=== PATIENT | male | born 1975 | race Caucasian/White ===

== ENCOUNTER 2020-08-29 18:05 | Emergency (ER) | payer SELFPAY ==
[2020-08-29 18:11] VITALS: BP 155/99; PULSE 87; RESP 16; TEMP 36.8; O2SAT 94; BMI 46.1
[2020-08-29 18:26] LABS: Glucose Point of Care 450 mg/dL (70-110)
--- NOTE | 2020-08-29 18:30 | W.ED.RECABL ---
HPI - Recheck/Abnormal Lab/Rx General: Chief Complaint: Recheck/Abnormal Lab/Rx Stated Complaint: doc sent/thinks hes going into diabetic coma Time Seen by Provider: 08/29/20 18:23 Source: patient Mode of arrival: ambulatory Limitations: no limitations History of Present Illness: HPI narrative: 45-year-old male who states he has diabetes and his blood sugar has been running in the 400s over the last week. Patient's PCP had him do,. Make sure he was not DKA. He has had a diabetes for long time is only on Metformin at home. He denies any worsening improving factors. Denies any vomiting or diarrhea. Denies any pain anywhere. Review of Systems Const: Denies: fever(s), chills, body aches or change in appetite Eyes: Denies: blurry vision or eye discomfort ENMT: Denies: throat pain or dental pain Card: Denies: chest pain Resp: Denies: dyspnea GI: Denies: abdominal pain, nausea, vomiting or diarrhea : Denies: dysuria Musc: Denies: neck pain or back pain Skin/Breast: Denies: rash Neuro: Denies: headache(s) Psych: Denies: depression Pete/Lymph: Denies: easy bruising All/Imm: Denies: urticaria Physical Exam Const: COMMON NORMALS: no acute distress, patient oriented x3 and healthy appearing HENMT: COMMON NORMALS: normocephalic and atraumatic HEAD & SCALP: normocephalic and atraumatic Eye: COMMON NORMALS: Equal, round and reactive pupils present and EOMs intact bilaterally PUPIL: Yes Equal, round and reactive pupils present Neck/C-Spine: COMMON NORMALS: full ROM and supple Chest: COMMONS NORMALS: normal inspection of the chest and normal palpation of entire chest wall Resp: COMMON NORMALS: normal respiratory effort, No retractions, No use of accessory muscles and clear to auscultation bilaterally AUSCULTATION: clear to auscultation bilaterally Cardio: COMMON NORMALS: regular rate, regular rhythm and No murmurs present (Cardio) RATE: regular rate RHYTHM: regular rhythm GI: COMMON NORMALS: Normal to inspection, nondistended, normoactive bowel sounds present, Soft to palpation, non-tender and no masses PALPATION: Yes Soft to palpation Extremity: COMMON NORMALS: normal to inspection and full ROM Neuro: COMMON NORMALS: patient oriented x3, moves all extremities and no focal motor deficits Psych: COMMON NORMALS: mental status grossly normal, Normal thought process present and cooperative THOUGHT PROCESS: Normal thought process present Skin: COMMON NORMALS: no rashes or lesions noted and no wounds GENERAL SKIN EXAM: no rashes or lesions noted Course Vital Signs: Vital signs: Vital Signs Temperature 98.2 F 08/29/20 18:11 Pulse Rate 89 08/29/20 19:24 Respiratory Rate 18 08/29/20 19:24 Blood Pressure 147/95 08/29/20 19:24 Pulse Oximetry 96 08/29/20 19:24 MDM - Recheck/Abnormal Lab/Rx MDM Narrative: Medical decision making narrative: Patient presents with hyperglycemia with no signs of DKA. Patient has otherwise well-appearing here. Patient's blood sugar here is improving. I spoke to his PCP and will start him on Levemir and he is to follow-up with PCP in 2 to 4 days. He is return if worsening. He understands agrees to plan. Lab Data: Labs: Lab Results 08/29/20 08/29/20 08/29/20 Range/Units 18:18 19:15 19:15 WBC 8.4 (4.0-10.0) 10^3/ uL RBC 5.09 (4.1-5.3) 10^6/u L Hgb 16.0 (11.7-16.6) g/dL Hct 47.3 (42.0-52.0) % MCV 92.9 (80-94) fL MCH 31.4 (28.0-34.0) pg MCHC 33.8 (30.0-36.0) g/dL RDW 12.1 (12.1-15.1) % Plt Count 272 (130-400) 10^3/c mm MPV 10.1 (7.4-10.4) fL Neut % (Auto) 72.9 % Lymph % (Auto) 16.4 % [place] % (Auto) 6.6 % Eos % (Auto) 2.3 % Baso % (Auto) 1.2 % Neut # (Auto) 6.10 (1.8-7.7) 10^3/u L Lymph # (Auto) 1.4 (0.8-4.8) 10^3/u L [place] # (Auto) 0.6 (0.2-0.9) 10^3/u L Eos # (Auto) 0.2 (0.0-0.8) 10^3/u L Baso # (Auto) 0.1 (0.0-0.1) 10^3/u L Nucleated RBC % (a uto) 0 % Nucleated RBCs # 0.0 /100WBC Sodium 131 L (136-145) mmol/L Potassium 4.2 (3.5-5.1) mmol/L Chloride 98 (98-107) mmol/L Carbon Dioxide 22 (22-29) mmol/L Anion Gap 15.2 (5-19) BUN 15 (6-20) mg/dL Creatinine 0.8 (0.7-1.2) mg/dL GFR Calculation 105.0 (90-130) mL/min Glucose 508 H* (65-115) mg/dL POC Glucose 450 (70-110) mg/dL Calculated Osmolal ity 296 H (285-295) mOsm/k g Calcium 9.8 (8.5-10.5) mg/dL Total Bilirubin 0.8 (0.15-1.2) mg/dL AST 16 (0-40) U/L ALT 37 (0-41) U/L Alkaline Phosphata se 129 (40-130) IU/L Total Protein 6.8 (6.6-8.7) g/dL Albumin 4.1 (3.5-5.2) g/dL Globulin 2.7 (1.3-4.6) g/dL 1015/20 Range/Units 20:11 WBC (4.0-10.0) 10^3/ uL RBC (4.1-5.3) 10^6/u L Hgb (11.7-16.6) g/dL Hct (42.0-52.0) % MCV (80-94) fL MCH (28.0-34.0) pg MCHC (30.0-36.0) g/dL RDW (12.1-15.1) % Plt Count (130-400) 10^3/c mm MPV (7.4-10.4) fL Neut % (Auto) % Lymph % (Auto) % [place] % (Auto) % Eos % (Auto) % Baso % (Auto) % Neut # (Auto) (1.8-7.7) 10^3/u L Lymph # (Auto) (0.8-4.8) 10^3/u L [place] # (Auto) (0.2-0.9) 10^3/u L Eos # (Auto) (0.0-0.8) 10^3/u L Baso # (Auto) (0.0-0.1) 10^3/u L Nucleated RBC % (a uto) % Nucleated RBCs # /100WBC Sodium (136-145) mmol/L Potassium (3.5-5.1) mmol/L Chloride (98-107) mmol/L Carbon Dioxide (22-29) mmol/L Anion Gap (5-19) BUN (6-20) mg/dL Creatinine (0.7-1.2) mg/dL GFR Calculation (90-130) mL/min Glucose (65-115) mg/dL POC Glucose 366 (70-110) mg/dL Calculated Osmolal ity (285-295) mOsm/k g Calcium (8.5-10.5) mg/dL Total Bilirubin (0.15-1.2) mg/dL AST (0-40) U/L ALT (0-41) U/L Alkaline Phosphata se (40-130) IU/L Total Protein (6.6-8.7) g/dL Albumin (3.5-5.2) g/dL Globulin (1.3-4.6) g/dL Discharge Plan Discharge Patient Disposition: Home Clinical Impression: Hyperglycemia Condition: Stable Prescriptions: New Levemir U-100 Insulin 100 unit/mL solution 30 unit SUBCUT DAILY Qty: 10 RF: 2 Discharge Orders: Discharge Order (Routine); Ordered 08/29/20 Ordered By: Vinay Jc Referrals: Clive Betancourt MD [Primary Care Provider] - 1-3 days Discharge Diet: Advance as tolerated Discharge Activity: Resume usual activity Patient Instructions: Diabetic Hyperglycemia (ED) Coding Level of Care Code ED Legal Operations Manager for Chg Fwd Exam Comprehensive
[2020-08-29] MEDS: sodium chloride 0.9% 1,000 ML 999 ML IV (19:20)
[2020-08-29] MEDS: insulin regular-human 100 units/1 mL 8 UNIT IVP (19:21)
[2020-08-29 19:24] VITALS: BP 147/95; PULSE 89; RESP 18; O2SAT 96
[2020-08-29 19:25] LABS: Basophils # 0.1 10^3/uL (0.0-0.1); Basophils % 1.2 %; Eosinophils # 0.2 10^3/uL (0.0-0.8); Eosinophils % 2.3 %; Hematocrit 47.3 % (42.0-52.0); Lymphocytes # 1.4 10^3/uL (0.8-4.8); Lymphocytes % 16.4 %; Mean Corpuscular HGB Conc 33.8 g/dL (30.0-36.0); Mean Corpuscular Hemoglobin 31.4 pg (28.0-34.0); Mean Corpuscular Volume 92.9 fL (80-94); Mean Platelet Volume 10.1 fL (7.4-10.4); Monocytes # 0.6 10^3/uL (0.2-0.9); Monocytes % 6.6 %; Neutrophils % 72.9 %; Nucleated Red Blood Cells % 0 %; Platelet Count 272 10^3/cmm (130-400); Red Blood Count 5.09 10^6/uL (4.1-5.3); Red Cell Distribution Width 12.1 % (12.1-15.1); White Blood Count 8.4 10^3/uL (4.0-10.0)
[2020-08-29 19:37] LABS: Alanine Aminotransferase 37 U/L (0-41); Albumin Level 4.1 g/dL (3.5-5.2); Alkaline Phosphatase 129 IU/L (40-130); Aspartate Amino Transferase 16 U/L (0-40); Blood Urea Nitrogen 15 mg/dL (6-20); Calcium 9.8 mg/dL (8.5-10.5); Carbon Dioxide 22 mmol/L (22-29); Chloride 98 mmol/L (98-107); Globulin 2.7 g/dL (1.3-4.6); Osmolality Calculated 296 mOsm/kg (285-295); Sodium 131 mmol/L (136-145); Total Bilirubin 0.8 mg/dL (0.15-1.2); Total Protein 6.8 g/dL (6.6-8.7)
[2020-08-29 19:38] LABS: Anion Gap 15.2 (5-19); Potassium 4.2 mmol/L (3.5-5.1)
[2020-08-29 19:39] LABS: Glucose 508 mg/dL (65-115)
--- NOTE | 2020-08-29 20:13 | PC.NURSE ---
Blood glucose is 366
[2020-08-29 20:14] LABS: Glucose Point of Care 366 mg/dL (70-110)
[2020-08-29 20:56] VITALS: BP 141/100; PULSE 86; RESP 18; O2SAT 96
== END 2020-08-29 20:57 | disposition home or self-care (01) ==
PROVIDERS: Emergency Provider Emergency Medicine; PCP Family Medicine
DX: E11.65 Type 2 diabetes mellitus with hyperglycemia (principal)
CPT/HCPCS: 12345; 36416; 80053; 82962; 85025; 96361; 96374; 96375; 99283; J1815; J7030

== ENCOUNTER 2021-06-11 19:54 | Emergency (ER) | payer SELFPAY ==
[2021-06-11 20:59] VITALS: BP 178/101; PULSE 92; RESP 17; TEMP 36.7; O2SAT 95; BMI 44.9
--- NOTE | 2021-06-11 23:33 | CTR_ITS ---
PROCEDURE INFORMATION: Exam: CT Head Without Contrast Exam date and time: 06/11/2021 11:33 PM Age: 45 years old Clinical indication: Pain; Headache; Patient HX: SCOTT. Elevated blood glucose. Large body dfov used due to patient unable to relax head back due to cervical issues. TECHNIQUE: Imaging protocol: Computed tomography of the head without contrast. Radiation optimization: All CT scans at this facility use at least one of these dose optimization techniques: automated exposure control; mA and/or kV adjustment per patient size (includes targeted exams where dose is matched to clinical indication); or iterative reconstruction. COMPARISON: No relevant prior studies available. RADIATION DOSE METRICS: Total DLP (mGy-cm): 537.7 FINDINGS: Brain: The brain is unremarkable. There is no mass effect or significant white matter disease. There is no acute intracranial hemorrhage. Cerebral ventricles: There is no significant ventricular dilation. The basal cisterns are unremarkable. Paranasal sinuses: The paranasal sinuses are clear. Mastoid air cells: The mastoid air cells are clear. Bones/joints: The calvarium is intact. Soft tissues: The visible extracranial soft tissues are unremarkable. CT/CT head wo con* [id number] IMPRESSION: No acute intracranial abnormality. Radiation Dose CTDIVOL = (mGy): DLP = 537.7 (mGy-cm)
[2021-06-12 00:17] VITALS: BP 158/83; PULSE 89; RESP 20; O2SAT 94
[2021-06-12 00:36] LABS: Glucose Point of Care 291 mg/dL (70-110)
[2021-06-12 00:47] LABS: Basophils % 0.8 %; Hematocrit 45.2 % (42.0-52.0); Hemoglobin 15.6 g/dL (11.7-16.6); Lymphocytes # 0.9 10^3/uL (0.8-4.8); Lymphocytes % 22.2 %; Mean Corpuscular HGB Conc 34.5 g/dL (30.0-36.0); Mean Corpuscular Volume 89.7 fL (80-94); Mean Platelet Volume 10.2 fL (7.4-10.4); Monocytes # 0.4 10^3/uL (0.2-0.9); Monocytes % 9.8 %; Neutrophils # 2.56 10^3/uL (1.8-7.7); Neutrophils % 65.9 %; Nucleated Red Blood Cells % 0 %; Platelet Count 172 10^3/cmm (130-400); Red Blood Count 5.04 10^6/uL (4.1-5.3); Red Cell Distribution Width 13.2 % (12.1-15.1); White Blood Count 3.9 10^3/uL (4.0-10.0)
--- NOTE | 2021-06-12 00:48 | W.ED.HA ---
HPI - Headache General: Chief Complaint: Headache Stated Complaint: severe h/a sugar is 305 dizzy Time Seen by Provider: 06/12/21 00:16 History of Present Illness: HPI Narrative: Patient is a 45-year-old male comes to the ED with headache. Symptoms started approximately 3 weeks ago. He endorses having some photophobia and nausea. He says loud noises make headache worse as well. Headache is currently rated a 7 out of 10 and he says the pain is generalized throughout his entire head. Denies any neurological symptoms. Patient is also type II diabetic and was currently on some insulin to help manage diabetes. He says he has not been taking his insulin because his blood sugars have been running good without the insulin. Patient does not currently have a primary care physician and would like to get established with a primary care doctor. Associated symptoms: Reports nausea; Deny chest pain, fever(s), rash or vomiting Review of Systems Const: Denies: fever(s), chills or fatigue Eyes: Reports: photophobia; Denies: change in vision or eye discomfort ENMT: Denies: throat pain, odynophagia, nasal discharge or nasal congestion Card: Denies: chest pain, palpitations, edema, swelling of feet/ankles, dyspnea on exertion or orthopnea Resp: Denies: dyspnea, productive cough or non-productive cough GI: Reports: nausea; Denies: abdominal pain, vomiting, diarrhea, constipation or hematochezia : Denies: flank pain, difficulty urinating, dysuria or hematuria Musc: Denies: neck pain, back pain or extremity swelling Skin/Breast: Denies: rash or new lesions Neuro: Reports: headache(s); Denies: numbness in extremities or weakness in extremities PFSH ED PFSH: Medical History Anxiety Depression Diabetes type 2, uncontrolled HTN (hypertension) Hyperlipidemia associated with type 2 diabetes mellitus Morbid obesity with BMI of 40.0-44.9, adult Surgical History History of dental surgery Family History Mother Depression Father Depression Other CAD (coronary artery disease) Cancer Dementia Social History Smoking and tobacco status: former smoker Alcohol intake: current Alcohol intake frequency: holidays/special occasions only Alcohol type: beer, wine and hard liquor Marital status: Number of children: 0 Current occupational status: unemployed Physical Exam Const: COMMON NORMALS: no acute distress, patient oriented x3 and alert GENERAL APPEARANCE: cooperative and comfortable NUTRITIONAL APPEARANCE: obese morbidly obese HENMT: COMMON NORMALS: normocephalic HEAD & SCALP: normocephalic MOUTH: Normal oral and palatal mucosa present THROAT: posterior oropharynx normal and uvula midline Eye: COMMON NORMALS: Equal, round and reactive pupils present, EOMs intact bilaterally and normal visual guerra by confrontation PUPIL: Yes Equal, round and reactive pupils present Neck/C-Spine: COMMON NORMALS: supple GENERAL: Yes normal visual inspection Resp: COMMON NORMALS: normal respiratory effort, No retractions, No use of accessory muscles and clear to auscultation bilaterally AUSCULTATION: clear to auscultation bilaterally Cardio: COMMON NORMALS: regular rate, regular rhythm, S1 normal heart sound present, S2 normal heart sound present, No gallops present (Cardio), No clicks present (Cardio), No murmurs present (Cardio) and Peripheral pulses 2+ throughout RATE: regular rate RHYTHM: regular rhythm HEART SOUNDS: S1 normal heart sound present and S2 normal heart sound present PERIPHERAL PULSES: Peripheral pulses 2+ throughout GI: COMMON NORMALS: Normal to inspection, nondistended, normoactive bowel sounds present, Soft to palpation, non-tender and no masses INSPECTION: Yes central obesity PALPATION: Yes Soft to palpation : COMMON NORMALS: Yes no CVA tenderness BLADDER/KIDNEY EXAM: Yes no CVA tenderness Back/Pelvis: COMMON NORMALS: no CVA tenderness Extremity: COMMON NORMALS: normal to inspection Neuro: COMMON NORMALS: patient oriented x3, CN's II-XII intact bilaterally, moves all extremities, no focal motor deficits and no sensory deficits noted SENSORIUM/ORIENTATION: Yes alert SENSORY EXAM: Yes extremities (intact) MOTOR EXAM: 5/5 motor strength present throughout Skin: GENERAL SKIN EXAM: dry skin Course Reevaluation(s): Reevaluation #1: After patient received IV migraine cocktail with fluids his migraine almost completely resolved. Patient is ready to go home and rest. Time: 02:31 Vital Signs: Vital signs: Vital Signs Temperature 98.0 F 07/28/21 20:59 Pulse Rate 84 06/12/21 01:12 Respiratory Rate 18 06/12/21 01:12 Blood Pressure 122/87 06/12/21 01:12 Pulse Oximetry 90 06/12/21 02:35 MDM - Headache MDM Narrative: Medical decision making narrative: Patient is a 45-year-old male comes to the ED with headache. Patient's been having a headache for the past 3 weeks. He has a past medical history of type 2 diabetes and is morbidly obese. Neuro exam was normal and lungs were clear to auscultation bilaterally. Vitals were stable, but it appeared when patient was laying his O2 level fluctuated between 90 to 92%. I placed a home O2 evaluation for patient and respiratory therapy said patient did not qualify for home oxygen. Patient's blood glucose was 296 seen in the ED and the rest of CBC and CMP were unremarkable. CT of head showed no acute findings. Chest x-ray showed no acute findings. Patient was given IV fluids, Toradol, Decadron, Reglan and Benadryl and his migraine greatly improved. Patient told me that he does not have a primary care physician and would like a referral. I placed an order with case management for patient be referred to PCP. Patient diagnosed with a migraine and discharged home. He was told that case management will be contacting him in the next several days to set up an appointment with PCP. Return to ED precautions given. Patient is to agree with plan. Lab Data: Attestation: I reviewed the patient's lab results. Labs: Lab Results 06/12/21 06/12/21 06/12/21 Range/Units 00:33 00:35 00:35 WBC 3.9 L (4.0-10.0) 10^3/ uL RBC 5.04 (4.1-5.3) 10^6/u L Hgb 15.6 (11.7-16.6) g/dL Hct 45.2 (42.0-52.0) % MCV 89.7 (80-94) fL MCH 31.0 (28.0-34.0) pg MCHC 34.5 (30.0-36.0) g/dL RDW 13.2 (12.1-15.1) % Plt Count 172 (130-400) 10^3/c mm MPV 10.2 (7.4-10.4) fL Neut % (Auto) 65.9 % Lymph % (Auto) 22.2 % [place] % (Auto) 9.8 % Eos % (Auto) 1.0 % Baso % (Auto) 0.8 % Neut # (Auto) 2.56 (1.8-7.7) 10^3/u L Lymph # (Auto) 0.9 (0.8-4.8) 10^3/u L [place] # (Auto) 0.4 (0.2-0.9) 10^3/u L Eos # (Auto) 0.0 (0.0-0.8) 10^3/u L Baso # (Auto) 0.0 (0.0-0.1) 10^3/u L Nucleated RBC % (a uto) 0 % Nucleated RBCs # 0.0 /100WBC Sodium 132 L (136-145) mmol/L Potassium 3.7 (3.5-5.1) mmol/L Chloride 100 (98-107) mmol/L Carbon Dioxide 23 (22-29) mmol/L Anion Gap 12.7 (5-19) BUN 11 (6-20) mg/dL Creatinine 0.9 (0.7-1.2) mg/dL GFR Calculation 91.7 (90-130) mL/min Glucose 290 H (65-115) mg/dL POC Glucose 291 H (70-110) mg/dL Calculated Osmolal ity 284 L (285-295) mOsm/k g Calcium 7.9 L (8.5-10.5) mg/dL Total Bilirubin 0.6 (0.15-1.2) mg/dL AST 23 (0-40) U/L ALT 47 H (0-41) U/L Alkaline Phosphata se 106 (40-130) IU/L Total Protein 6.1 L (6.6-8.7) g/dL Albumin 3.6 (3.5-5.2) g/dL Globulin 2.5 (1.3-4.6) g/dL Lipase 31 (13-60) U/L Imaging Data^: CT Head: Attestation: I personally reviewed and interpreted this imaging study as follows: Radiologist's impression: [facility] [address] [address] Scan Report Signed Patient: Olivier Escalera Unit #: [id number] : 1975 Age/Sex: 45 / M ADM Date: 06/11/21 Loc: ER Room/Bed: Attending Dr: Ordering Provider/Ordering MD: Vinay Jc MD Date of Service: 06/11/21 Procedure(s): CT head wo con* [id number] Accession Number(s): [id number] Report Number: [id number] PROCEDURE INFORMATION: Exam: CT Head Without Contrast Exam date and time: 06/11/2021 11:33 PM Age: 45 years old Clinical indication: Pain; Headache; Patient HX: SCOTT. Elevated blood glucose. Large body dfov used due to patient unable to relax head back due to cervical issues. TECHNIQUE: Imaging protocol: Computed tomography of the head without contrast. Radiation optimization: All CT scans at this facility use at least one of these dose optimization techniques: automated exposure control; mA and/or kV adjustment per patient size (includes targeted exams where dose is matched to clinical indication); or iterative reconstruction. COMPARISON: No relevant prior studies available. RADIATION DOSE METRICS: Total DLP (mGy-cm): 537.7 FINDINGS: Brain: The brain is unremarkable. There is no mass effect or significant white matter disease. There is no acute intracranial hemorrhage. Cerebral ventricles: There is no significant ventricular dilation. The basal cisterns are unremarkable. Paranasal sinuses: The paranasal sinuses are clear. Mastoid air cells: The mastoid air cells are clear. Bones/joints: The calvarium is intact. Soft tissues: The visible extracranial soft tissues are unremarkable. CT/CT head wo con* [id number] IMPRESSION: No acute intracranial abnormality. Radiation Dose CTDIVOL = (mGy): DLP = 537.7 (mGy-cm) Dictated By: Fernando Kapadia MD Signed By: Fernando Kapadia MD Signed Date/Time: 06/12/21139 DD/ 0139 CXR: Attestation: I personally reviewed and interpreted this imaging study as follows: My impression: Chest x-ray showed no acute findings. Discharge Plan Discharge Patient Disposition: Home Clinical Impression: Migraine Qualifiers: Migraine type: without aura Status migrainosus presence: with status migrainosus Intractability: not intractable Qualified Code(s): G43.001 - Migraine without aura, not intractable, with status migrainosus Condition: Stable Prescriptions: No Action atorvastatin 10 mg PO DAILY RF: 0 carvedilol 12.5 mg PO BID RF: 0 folic acid 1 mg PO DAILY RF: 0 metformin 1,000 mg PO BID RF: 0 Levemir U-100 Insulin 100 unit/mL solution 55 unit SUBCUT DAILY Qty: 20 RF: 0 Discharge Orders: Discharge ED (Routine); Ordered 06/12/21 Ordered By: Clive Ramírez Discharge Diet: Regular Discharge Activity: Resume usual activity Patient Instructions: Migraine Headache (ED) Activity Restrictions/Additional Instructions: Follow-up with medical provider as directed. Case management should be contacting you in the next several days to set up an appointment with primary care physician. Continue taking all home medications as prescribed. Return to the ER or your medical provider if condition worsens. Please read and understand discharge instructions. Thank you for choosing [facility] for your healthcare needs today. Please realize this is an emergency room and that we are providing you with a medical screening exam and this may not be complete and all inclusive of all the testing and or work up that you may need to determine your ailment or severity of your illness. It is very important that you follow up as instructed or that you return to the Emergency Department should you have concerns or if your condition changes or worsens in any way. Coding Level of Care Code ED Screw Down for Millicent Montanez Exam Comprehensive
[2021-06-12 01:06] LABS: Alanine Aminotransferase 47 U/L (0-41); Albumin Level 3.6 g/dL (3.5-5.2); Alkaline Phosphatase 106 IU/L (40-130); Aspartate Amino Transferase 23 U/L (0-40); Blood Urea Nitrogen 11 mg/dL (6-20); Calcium 7.9 mg/dL (8.5-10.5); Carbon Dioxide 23 mmol/L (22-29); Chloride 100 mmol/L (98-107); Creatinine Clr Calc Pharmacy 162.4124; Globulin 2.5 g/dL (1.3-4.6); Glomerular Filtration Rate 91.7 mL/min (90-130); Glucose 290 mg/dL (65-115); Lipase 31 U/L (13-60); Osmolality Calculated 284 mOsm/kg (285-295); Sodium 132 mmol/L (136-145); Total Bilirubin 0.6 mg/dL (0.15-1.2); Total Protein 6.1 g/dL (6.6-8.7)
[2021-06-12 01:09] LABS: Anion Gap 12.7 (5-19); Potassium 3.7 mmol/L (3.5-5.1)
[2021-06-12 01:12] VITALS: BP 122/87; PULSE 84; RESP 18; O2SAT 92
[2021-06-12] MEDS: ketorolac 30 mg/mL INJ IVP (01:13)
[2021-06-12] MEDS: dexamethasone 4 mg/mL INJ 10 MG IVP (01:13)
[2021-06-12] MEDS: diphenhydrAMINE 50 mg/mL SDV 1mL 25 MG IVP (01:13)
[2021-06-12] MEDS: metoclopramide 5 mg/mL SDV 2 mL 10 MG IVP (01:14)
[2021-06-12] MEDS: sodium chloride 0.9% 1,000 ML 999 ML IV (01:14)
--- NOTE | 2021-06-12 01:53 | XRR_ITS ---
PROCEDURE INFORMATION: Exam: XR Chest Exam date and time: 06/12/2021 1:53 AM Age: 45 years old Clinical indication: Shortness of breath; Patient HX: Worsening hypoxia while in the er. ; Additional info: SOB, o2 sat 88-92% on ra TECHNIQUE: Imaging protocol: XR of the chest. Views: 1 view. COMPARISON: No relevant prior studies available. FINDINGS: Lungs: Hazy increased density present in the right lung, concerning for pneumonia/COVID-19. Pleural spaces: Unremarkable. No pleural effusion. No pneumothorax. Heart/Mediastinum: Unremarkable. No cardiomegaly. Bones/joints: Unremarkable. XR/XR chest 1V portable [id number] IMPRESSION: Hazy increased density present in the right lung, concerning for pneumonia/COVID-19.
[2021-06-12 02:35] VITALS: O2SAT 90; O2SAT 92
[2021-06-12 03:06] VITALS: BP 145/86; PULSE 81; RESP 17; O2SAT 92
--- NOTE | 2021-06-17 15:26 | DCPLANNER ---
car wash manager had message to speak with patient about getting established with a primary care physician. car wash manager called patient, unable to speak with patient at this time, and unable to leave a voicemail for patient.
== END 2021-06-12 03:15 | disposition home or self-care (01) ==
PROVIDERS: Emergency Medicine; Emergency Provider Physician Assistant
DX: G43.001 Migraine without aura, not intractable, with status migrainosus (principal); E11.9 Type 2 diabetes mellitus without complications; I10 Essential (primary) hypertension; E78.5 Hyperlipidemia, unspecified; E66.01 Morbid (severe) obesity due to excess calories; Z68.41 Body mass index [BMI] 40.0-44.9, adult; Z79.4 Long term (current) use of insulin; Z87.891 Personal history of nicotine dependence
CPT/HCPCS: 36416; 70450; 71045; 80053; 82962; 83690; 85025; 96361; 96374; 96375; 99284; J1100; J1200; J1885; J2765; J7030

== ENCOUNTER 2021-06-20 01:36 | Emergency (ER) | payer SELFPAY ==
--- NOTE | 2021-06-20 01:47 | XRR_ITS ---
PROCEDURE INFORMATION: Exam: XR Chest Exam date and time: 06/20/2021 1:47 AM Age: 45 years old Clinical indication: Shortness of breath; Patient HX: SOB. Covid + TECHNIQUE: Imaging protocol: XR of the chest. Views: 1 view. COMPARISON: CR (CHEST, ) 06/12/2021 1:55 AM FINDINGS: Lungs: There are patchy interstitial opacities present within the hemithoraces bilaterally, findings compatible with a bilateral patchy interstitial pneumonia. Pleural spaces: Unremarkable. No pleural effusion. No pneumothorax. Heart/Mediastinum: Unremarkable. No cardiomegaly. Bones/joints: Unremarkable. XR/XR chest 1V portable [id number] IMPRESSION: Patchy interstitial opacities compatible with a bilateral interstitial pneumonia.
[2021-06-20 01:49] VITALS: BP 164/98; PULSE 92; RESP 18; TEMP 37.1; O2SAT 91; BMI 45.9
[2021-06-20 02:16] VITALS: O2SAT 92
--- NOTE | 2021-06-20 02:19 | W.ED.COVID ---
HPI - COVID General: Chief Complaint: COVID symptoms Stated Complaint: sob,covid positive Time Seen by Provider: 06/20/21 02:19 Triage information: Has fever, cough or shortness of breath. Exposure to COVID + person last 14 days History of Present Illness: HPI Narrative: Patient was seen in the emergency department at [facility] over the weekend for complaints of malaise and not feeling well. Patient at that time was tested and was positive for COVID-19. Patient comes in today for complaints of some shortness of breath with exertion. Patient reports he has felt ill since the Wednesday before last. Patient was treated here on the for migraine headache. Patient states he did not check for Covid at that time. Review of the labs from that day we do note some mild leukopenia with a white blood cell count of 3.9. Patient also has diabetes and morbid obesity. COVID 19 common symptoms: positive dyspnea COVID Results: No Data to Display Review of Systems General: Reports: 10 or more systems reviewed and unremarkable except in HPI and below Resp: Reports: dyspnea PFSH ED PFSH: Medical History Anxiety Depression Diabetes type 2, uncontrolled HTN (hypertension) Hyperlipidemia associated with type 2 diabetes mellitus Morbid obesity with BMI of 40.0-44.9, adult Surgical History History of dental surgery Family History Mother Depression Father Depression Other CAD (coronary artery disease) Cancer Dementia Social History Smoking and tobacco status: former smoker Alcohol intake: current Alcohol intake frequency: holidays/special occasions only Alcohol type: beer, wine and hard liquor Marital status: Number of children: 0 Current occupational status: unemployed Physical Exam Const: COMMON NORMALS: no acute distress and patient oriented x3 GENERAL APPEARANCE: cooperative HENMT: COMMON NORMALS: normocephalic and Normal external nose present HEAD & SCALP: normal to inspection and normocephalic NOSE: Normal external nose present MOUTH: Normal oral and palatal mucosa present THROAT: posterior oropharynx normal Eye: GENERAL EYE: appearance normal, both eyes and all related structures Neck/C-Spine: COMMON NORMALS: full ROM Lymph: LYMPHATIC: no lymphadenopathy noted Chest: COMMONS NORMALS: normal inspection of the chest Resp: COMMON NORMALS: normal respiratory effort and clear to auscultation bilaterally EFFORT & INSPECTION: Yes able to speak in complete sentences AUSCULTATION: clear to auscultation bilaterally Cardio: COMMON NORMALS: regular rate and regular rhythm RATE: regular rate RHYTHM: regular rhythm GI: COMMON NORMALS: non-tender Back/Pelvis: COMMON NORMALS: thoracic and lumbar spine normal to inspection Extremity: COMMON NORMALS: normal to inspection Neuro: COMMON NORMALS: patient oriented x3 and moves all extremities Psych: COMMON NORMALS: mental status grossly normal and cooperative Skin: COMMON NORMALS: no rashes or lesions noted GENERAL SKIN EXAM: no rashes or lesions noted Course Vital Signs: Vital signs: Vital Signs Temperature 98.8 F 06/20/21 01:49 Pulse Rate 92 06/20/21 01:49 Respiratory Rate 18 06/20/21 01:49 Blood Pressure 164/98 06/20/21 01:49 Pulse Oximetry 92 06/20/21 02:16 MDM - COVID MDM Narrative: Medical decision making narrative: Patient comes in today with Covid positive test done last Wednesday at [facility]. Patient's been ill for about 2 weeks ago. Patient reports increased shortness of breath over the last 2 days. On exam vital signs were normal. Patient is obese patient with diabetes. Lungs are decreased in the bases. Skin is warm and dry. Differential diagnosis includes but not limited to pneumonia, COVID-19, bronchitis. Chest x-ray showed patchy infiltrates bilateral in the lung guerra. Reviewed exam with patient with recommendations for treatment of pneumonia with oxygen and albuterol inhaler. Patient refused oxygen as he reported that he would not use it. We will go ahead and get patient albuterol inhaler and start him on some doxycycline to cover for about possible bacterial infection since the length of time is been 14 days since beginning of illness. Patient was also given 7 tablets of Ambien for his complaints of insomnia since being ill. I discussed this with patient with recommendations for further treatment and follow-up with primary care. Patient reported understanding agreed to plan. COVID Results: No Data to Display Discharge Plan Discharge Patient Disposition: Home Clinical Impression: Pneumonia due to 2019 novel coronavirus Condition: Stable Prescriptions: New Ambien 5 mg tablet 5 mg PO .hs PRN (Reason: Sleep) Qty: 7 RF: 0 doxycycline monohydrate 100 mg capsule 100 mg PO BID 7 Days Qty: 14 RF: 0 No Action atorvastatin 10 mg PO DAILY RF: 0 carvedilol 12.5 mg PO BID RF: 0 folic acid 1 mg PO DAILY RF: 0 metformin 1,000 mg PO BID RF: 0 Levemir U-100 Insulin 100 unit/mL solution 55 unit SUBCUT DAILY Qty: 20 RF: 0 Discharge Orders: Discharge ED (Routine); Ordered 06/20/21 Ordered By: Rodrigo Sanchez Discharge Diet: Usual diet Discharge Activity: Increase activity as tolerated Patient Instructions: Viral Pneumonia (ED), Opioid Safety Activity Restrictions/Additional Instructions: You have COVID-19 pneumonia. This will increase your shortness of breath. Continue drinking plenty of fluids. Use doxycycline as directed for the next 7 days for concern of bacterial component to the pneumonia. Use Ambien 5 mg at bedtime as needed for sleeplessness. Continue drinking plenty of water. Follow-up with primary care for further instruction. Return to the ER for worsening symptoms such as chest pain or increasing shortness of breath. Coding Level of Care Code ED Market Research Interviewer for [employer] Fwd Exam Comprehensive
[2021-06-20 03:35] VITALS: PULSE 76; RESP 16; O2SAT 93
[2021-06-20] MEDS: albuterol 8 gm MDI 2 PUFF INHALATION (03:35)
[2021-06-20] MEDS: doxycycline 100 mg Tablet PO (04:50)
[2021-06-20] MEDS: zolpidem 5 mg Tablet PO (04:50)
[2021-06-20 04:52] VITALS: BP 178/86; PULSE 78; RESP 18; TEMP 36.9; O2SAT 93
== END 2021-06-20 04:53 | disposition home or self-care (01) ==
PROVIDERS: Emergency Provider Nurse Practitioner Family; PCP Family Medicine
DX: U07.1 COVID-19 (principal); J12.82 Pneumonia due to coronavirus disease 2019; E11.9 Type 2 diabetes mellitus without complications; I10 Essential (primary) hypertension; E78.5 Hyperlipidemia, unspecified; Z87.891 Personal history of nicotine dependence
CPT/HCPCS: 71045; 94640; 99283; J3535

== ENCOUNTER → 2021-06-30 09:39 | Outpatient (BNVA) | payer SELFPAY | PROVIDERS: PCP Family Medicine; Visit Provider Family Medicine | DX: E11.59 Type 2 diabetes mellitus with other circulatory complications (principal); I15.2 Hypertension secondary to endocrine disorders; Z76.89 Persons encountering health services in other specified circumstances; E66.01 Morbid (severe) obesity due to excess calories; Z68.41 Body mass index [BMI] 40.0-44.9, adult; E11.69 Type 2 diabetes mellitus with other specified complication; E78.5 Hyperlipidemia, unspecified; M54.5 Low back pain | CPT/HCPCS: 80061; 83036 ==

== ENCOUNTER 2022-10-25 00:37 | Emergency (ER) | payer SELFPAY ==
[2022-10-25 01:00] VITALS: BP 189/109; PULSE 100; RESP 22; TEMP 37.1; O2SAT 93; BMI 43.5
[2022-10-25 01:03] LABS: Glucose Point of Care 515 mg/dL (70-110)
--- NOTE | 2022-10-25 01:16 | W.ED.GENADLT ---
Documented by User: NELY Shah 10/25/22 17:56 HPI - General Adult General: Chief complaint: Headache Stated complaint: High blood sugar Time Seen by Provider: 10/25/22 00:56 History of Present Illness: Patient is a 47-year-old male comes to the ED with elevated blood sugars. Patient has a history of type 2 diabetes and is supposed to be on insulin but says he stopped using it probably 2 months ago. Patient says he would be taking his insulin and his blood sugars did not change much, so he just stopped taking his insulin. He states that he has had elevated blood sugar since August. He only checks his blood sugars when he starts feeling some symptoms. His main symptom is that he has been having for the past several weeks are increased thirst, increased urination and in a bad headache. He states in the past when he has had really high blood sugars usually gets a really bad headache with them. He rates his headache currently a 6 out of 10. Patient is also complaining of having a sore throat, nasal congestion and drainage and cough that started yesterday. Denies any shortness of breath, chest pain, abdominal pain, nausea or vomiting. Associated symptoms: Reports headache(s); Deny chest pain, dyspnea, nausea, rash, palpitations or vomiting Review of Systems Const: Denies: fever(s), chills or fatigue Eyes: Denies: change in vision or eye discomfort ENMT: Reports: nasal congestion; Denies: throat pain, odynophagia or nasal discharge Card: Denies: chest pain, palpitations, edema, swelling of feet/ankles, dyspnea on exertion or orthopnea Resp: Reports: non-productive cough; Denies: dyspnea or productive cough GI: Denies: abdominal pain, nausea, vomiting, diarrhea, constipation or hematochezia : Denies: flank pain, difficulty urinating, dysuria or hematuria Musc: Denies: neck pain, back pain or extremity swelling Skin/Breast: Denies: rash or new lesions Neuro: Reports: headache(s); Denies: numbness in extremities or weakness in extremities Endo: Reports: polyuria and polydipsia PFS ED PFSH: Medical History No pertinent family history Type 2 diabetes mellitus Physical Exam Const: COMMON NORMALS: patient oriented x3 and alert GENERAL APPEARANCE: cooperative NUTRITIONAL APPEARANCE: obese morbidly obese HENMT: COMMON NORMALS: normocephalic HEAD & SCALP: normocephalic MOUTH: Normal oral and palatal mucosa present THROAT: posterior oropharynx normal and uvula midline Neck/C-Spine: COMMON NORMALS: supple GENERAL: Yes normal visual inspection Resp: COMMON NORMALS: normal respiratory effort, No retractions, No use of accessory muscles and clear to auscultation bilaterally AUSCULTATION: clear to auscultation bilaterally Cardio: COMMON NORMALS: regular rate, regular rhythm, S1 normal heart sound present, S2 normal heart sound present, No gallops present (Cardio), No clicks present (Cardio), No murmurs present (Cardio) and Peripheral pulses 2+ throughout RATE: regular rate RHYTHM: regular rhythm HEART SOUNDS: S1 normal heart sound present and S2 normal heart sound present PERIPHERAL PULSES: Peripheral pulses 2+ throughout GI: COMMON NORMALS: Normal to inspection, nondistended, normoactive bowel sounds present, Soft to palpation, non-tender and no masses PALPATION: Yes Soft to palpation : COMMON NORMALS: Yes no CVA tenderness BLADDER/KIDNEY EXAM: Yes no CVA tenderness Back/Pelvis: COMMON NORMALS: no CVA tenderness Extremity: COMMON NORMALS: normal to inspection Neuro: COMMON NORMALS: patient oriented x3 SENSORIUM/ORIENTATION: Yes alert GAIT: Yes Normal gait present Skin: GENERAL SKIN EXAM: dry skin Course Vital Signs: Vital signs: Vital Signs Temperature 98.8 F 10/25/22 01:00 Pulse Rate 82 10/25/22 04:15 Respiratory Rate 20 H 10/25/22 04:15 Blood Pressure 147/92 10/25/22 04:15 Pulse Oximetry 93 10/25/22 04:15 Oxygen Delivery Me thod 10/25/22 01:[address] [facility] - General Adult Medical Decision Making Patient is a 47-year-old male comes to the ED with elevated blood sugars. Patient has a history of type 2 diabetes and is supposed to be on insulin but says he stopped using it probably 2 months ago. Patient says he would be taking his insulin and his blood sugars did not change much, so he just stopped taking his insulin. He states that he has had elevated blood sugar since August. He only checks his blood sugars when he starts feeling some symptoms. His main symptom is that he has been having for the past several weeks are increased thirst, increased urination and in a bad headache. He is also complaining of having some upper respiratory symptoms. Vitals are stable. Exam of patient shows a morbidly obese male in no acute distress or pain. Rest of exam is benign. His initial glucose check in triage was 515. The rest of his CBC and CMP were unremarkable. Serum ketones negative. He was given IV insulin, a liter and a half of IV fluids some Toradol for his headache. His symptoms improved and his blood glucose went down to 298. He was stable for discharge home. He was diagnosed with hyperglycemia due to type 2 diabetes mellitus and viral syndrome. Patient said he would not fill insulin prescription if I sent him home with 1 because of the cost and he wanted a possible cheaper option. I sent him with a prescription for metformin glyburide and a Z-Jeremy to help with his upper respiratory symptoms. He is told to follow-up with his PCP his neck scheduled appointment. Return to ED precautions given. Patient understood and agreed with plan. Lab Data I reviewed the patient's lab results. 10/25/22 01:08 10/25/22 01:08 Laboratory Results WBC 9.4 10^3/uL (4.0-10.0) 10/25/22 01:08 RBC 5.35 10^6/uL (4.1-5.3) H 10/25/22 01:08 Hgb 16.7 g/dL (11.7-16.6) H 10/25/22 01:08 Hct 48.4 % (42.0-52.0) 10/25/22 01:08 MCV 90.5 fl (80-94) 10/25/22 01:08 MCH 31.2 pg (28.0-34.0) 10/25/22 01:08 MCHC 34.5 g/dL (30.0-36.0) 10/25/22 01:08 RDW 12.7 % (12.1-15.1) 10/25/22 01:08 Plt Count 213 10^3/cmm (130-400) 10/25/22 01:08 MPV 9.9 fL (7.4-10.4) 10/25/22 01:08 Neut % (Auto) 76.7 % 10/25/22 01:08 Lymph % (Auto) 10.6 % 10/25/22 01:08 [place] % (Auto) 10.5 % 10/25/22 01:08 Eos % (Auto) 0.9 % 10/25/22 01:08 Baso % (Auto) 1.0 % 10/25/22 01:08 Neut # (Auto) 7.18 10^3/uL (1.8-7.7) 10/25/22 01:08 Lymph # (Auto) 1.0 10^3/uL (0.8-4.8) 10/25/22 01:08 [place] # (Auto) 1.0 10^3/uL (0.2-0.9) H 10/25/22 01:08 Eos # (Auto) 0.1 10^3/uL (0.0-0.8) 10/25/22 01:08 Baso # (Auto) 0.1 10^3/uL (0.0-0.1) 10/25/22 01:08 Nucleated RBC % (auto) 0 % 10/25/22 01:08 Nucleated RBCs # 0.0 /100WBC 10/25/22 01:08 Sodium 127 mmol/L (136-145) L 10/25/22 01:08 Potassium 4.1 mmol/L (3.5-5.1) 10/25/22 01:08 Chloride 93 mmol/L (98-107) L 10/25/22 01:08 Carbon Dioxide 25 mmol/L (22-29) 10/25/22 01:08 Anion Gap 13.1 (5-19) 10/25/22 01:08 BUN 13 mg/dL (6-20) 10/25/22 01:08 Creatinine 0.8 mg/dL (0.7-1.2) 10/25/22 01:08 GFR Calculation 104.1 mL/min (90-130) 10/25/22 01:08 Glucose 508 mg/dL (65-115) H* 10/25/22 01:08 POC Glucose 298 mg/dL (70-110) H 10/25/22 04:04 Calculated Osmolality 287 mOsm/kg (285-295) 10/25/22 01:08 Calcium 9.0 mg/dL (8.5-10.5) 10/25/22 01:08 Total Bilirubin 1.4 mg/dL (0.15-1.2) H 10/25/22 01:08 AST 23 U/L (0-40) 10/25/22 01:08 ALT 39 U/L (0-41) 10/25/22 01:08 Alkaline Phosphatase 137 U/L (40-130) H 10/25/22 01:08 Total Protein 6.7 g/dL (6.6-8.7) 10/25/22 01:08 Albumin 3.8 g/dL (3.5-5.2) 10/25/22 01:08 Globulin 2.9 g/dL (1.3-4.6) 10/25/22 01:08 Lipase 39 U/L (13-60) 10/25/22 01:08 Urine Color Yellow (Yellow) 10/25/22 01:35 Urine Appearance Clear (CLEAR) 10/25/22 01:35 Urine pH 5 (5-7) 10/25/22 01:35 Ur Specific [place] 1.010 (1.005-1.030) 10/25/22 01:35 Urine Protein Neg (Negative) 10/25/22 01:35 Urine Glucose (UA) 4+ (Normal) H 10/25/22 01:35 Urine Ketones 1+ (Negative) H 10/25/22 01:35 Urine Blood Neg (Negative) 10/25/22 01:35 Urine Nitrate Negative (Negative) 10/25/22 01:35 Urine Bilirubin Neg (Negative) 10/25/22 01:35 Urine Urobilinogen Neg mg/dL (Negative) 10/25/22 01:35 Ur Leukocyte Esterase Negative (Negative) 10/25/22 01:35 Serum Ketones Negative (Negative) 10/25/22 01:08 Discharge Plan Discharge Patient Disposition: Home Clinical Impression: Viral syndrome Hyperglycemia due to type 2 diabetes mellitus Qualifiers: Diabetes mellitus half-way insulin use: without long chain quiller tender use Qualified Code(s): E11.65 - Type 2 diabetes mellitus with hyperglycemia Condition: Stable Prescriptions: New glyburide 5 mg tablet 5 mg PO DAILY Qty: 30 0RF metformin 500 mg tablet 500 mg PO BID Qty: 60 0RF azithromycin 250 mg tablet See Rx Instructions .ROUTE .COMPLEX Qty: 6 0RF Rx Instructions: For 250 mg dose pack: take 500 mg today (day 1), then 250 mg for 4 days (days 2-5) Discharge Orders: Discharge ED (Routine); Ordered 10/25/22 Ordered By: Clive Ramírez Discharge Diet: Regular Discharge Activity: Increase activity as tolerated Patient Instructions: Managing Diabetes During Sick Days (ED), Diabetic Hyperglycemia (ED), Diabetes and Exercise (ED) Activity Restrictions/Additional Instructions: Follow-up with medical provider as directed at your next scheduled appointment for further management of diabetes medications. Take medications as prescribed. Return to the ER or your medical provider if condition worsens. Please read and understand discharge instructions. Thank you for choosing [facility] for your healthcare needs today. Please realize this is an emergency room and that we are providing you with a medical screening exam and this may not be complete and all inclusive of all the testing and or work up that you may need to determine your ailment or severity of your illness. It is very important that you follow up as instructed or that you return to the Emergency Department should you have concerns or if your condition changes or worsens in any way. Coding Level of Care Code ED Medical Claims Analyst for Chg Fwd Exam Comprehensive Documented by User: Ovi Sam DO 10/25/22 18:38 HPI - General Adult General: Chief complaint: Headache Stated complaint: High blood sugar Time Seen by Provider: 10/25/22 00:56 [facility] ED PFSH: Medical History No pertinent family history Type 2 diabetes mellitus Course Vital Signs: Vital signs: Vital Signs Temperature 98.8 F 10/25/22 01:00 Pulse Rate 82 10/25/22 04:15 Respiratory Rate 20 H 10/25/22 04:15 Blood Pressure 147/92 10/25/22 04:15 Pulse Oximetry 93 10/25/22 04:15 Oxygen Delivery Me thod 10/25/22 01:00 MDM - General Adult Medical Decision Making Patient is a 47-year-old male comes to the ED with elevated blood sugars. Patient has a history of type 2 diabetes and is supposed to be on insulin but says he stopped using it probably 2 months ago. Patient says he would be taking his insulin and his blood sugars did not change much, so he just stopped taking his insulin. He states that he has had elevated blood sugar since August. He only checks his blood sugars when he starts feeling some symptoms. His main symptom is that he has been having for the past several weeks are increased thirst, increased urination and in a bad headache. He is also complaining of having some upper respiratory symptoms. Vitals are stable. Exam of patient shows a morbidly obese male in no acute distress or pain. Rest of exam is benign. His initial glucose check in triage was 515. The rest of his CBC and CMP were unremarkable. Serum ketones negative. He was given IV insulin, a liter and a half of IV fluids some Toradol for his headache. His symptoms improved and his blood glucose went down to 298. He was stable for discharge home. He was diagnosed with hyperglycemia due to type 2 diabetes mellitus and viral syndrome. Patient said he would not fill insulin prescription if I sent him home with 1 because of the cost and he wanted a possible cheaper option. I sent him with a prescription for metformin glyburide and a Z-Jeremy to help with his upper respiratory symptoms. He is told to follow-up with his PCP his neck scheduled appointment. Return to ED precautions given. Patient understood and agreed with plan. This patient was originally seen by Mr. Desiree PA-C.? I agree with his history, evaluation, and treatment. Lab Data 10/25/22 01:08 10/25/22 01:08 Laboratory Results WBC 9.4 10^3/uL (4.0-10.0) 10/25/22 01:08 RBC 5.35 10^6/uL (4.1-5.3) H 10/25/22 01:08 Hgb 16.7 g/dL (11.7-16.6) H 10/25/22 01:08 Hct 48.4 % (42.0-52.0) 10/25/22 01:08 MCV 90.5 fl (80-94) 10/25/22 01:08 MCH 31.2 pg (28.0-34.0) 10/25/22 01:08 MCHC 34.5 g/dL (30.0-36.0) 10/25/22 01:08 RDW 12.7 % (12.1-15.1) 10/25/22 01:08 Plt Count 213 10^3/cmm (130-400) 10/25/22 01:08 MPV 9.9 fL (7.4-10.4) 10/25/22 01:08 Neut % (Auto) 76.7 % 10/25/22 01:08 Lymph % (Auto) 10.6 % 10/25/22 01:08 [place] % (Auto) 10.5 % 10/25/22 01:08 Eos % (Auto) 0.9 % 10/25/22 01:08 Baso % (Auto) 1.0 % 10/25/22 01:08 Neut # (Auto) 7.18 10^3/uL (1.8-7.7) 10/25/22 01:08 Lymph # (Auto) 1.0 10^3/uL (0.8-4.8) 10/25/22 01:08 [place] # (Auto) 1.0 10^3/uL (0.2-0.9) H 10/25/22 01:08 Eos # (Auto) 0.1 10^3/uL (0.0-0.8) 10/25/22 01:08 Baso # (Auto) 0.1 10^3/uL (0.0-0.1) 10/25/22 01:08 Nucleated RBC % (auto) 0 % 10/25/22 01:08 Nucleated RBCs # 0.0 /100WBC 10/25/22 01:08 Sodium 127 mmol/L (136-145) L 10/25/22 01:08 Potassium 4.1 mmol/L (3.5-5.1) 10/25/22 01:08 Chloride 93 mmol/L (98-107) L 10/25/22 01:08 Carbon Dioxide 25 mmol/L (22-29) 10/25/22 01:08 Anion Gap 13.1 (5-19) 10/25/22 01:08 BUN 13 mg/dL (6-20) 10/25/22 01:08 Creatinine 0.8 mg/dL (0.7-1.2) 10/25/22 01:08 GFR Calculation 104.1 mL/min (90-130) 10/25/22 01:08 Glucose 508 mg/dL (65-115) H* 10/25/22 01:08 POC Glucose 298 mg/dL (70-110) H 10/25/22 04:04 Calculated Osmolality 287 mOsm/kg (285-295) 10/25/22 01:08 Calcium 9.0 mg/dL (8.5-10.5) 10/25/22 01:08 Total Bilirubin 1.4 mg/dL (0.15-1.2) H 10/25/22 01:08 AST 23 U/L (0-40) 10/25/22 01:08 ALT 39 U/L (0-41) 10/25/22 01:08 Alkaline Phosphatase 137 U/L (40-130) H 10/25/22 01:08 Total Protein 6.7 g/dL (6.6-8.7) 10/25/22 01:08 Albumin 3.8 g/dL (3.5-5.2) 10/25/22 01:08 Globulin 2.9 g/dL (1.3-4.6) 10/25/22 01:08 Lipase 39 U/L (13-60) 10/25/22 01:08 Urine Color Yellow (Yellow) 10/25/22 01:35 Urine Appearance Clear (CLEAR) 10/25/22 01:35 Urine pH 5 (5-7) 10/25/22 01:35 Ur Specific [place] 1.010 (1.005-1.030) 10/25/22 01:35 Urine Protein Neg (Negative) 10/25/22 01:35 Urine Glucose (UA) 4+ (Normal) H 10/25/22 01:35 Urine Ketones 1+ (Negative) H 10/25/22 01:35 Urine Blood Neg (Negative) 10/25/22 01:35 Urine Nitrate Negative (Negative) 10/25/22 01:35 Urine Bilirubin Neg (Negative) 10/25/22 01:35 Urine Urobilinogen Neg mg/dL (Negative) 10/25/22 01:35 Ur Leukocyte Esterase Negative (Negative) 10/25/22 01:35 Serum Ketones Negative (Negative) 10/25/22 01:08 Discharge Plan Discharge Patient Disposition: Home Clinical Impression: Viral syndrome Hyperglycemia due to type 2 diabetes mellitus Qualifiers: Diabetes mellitus long chain quiller tender insulin use: without long chain quiller tender use Qualified Code(s): E11.65 - Type 2 diabetes mellitus with hyperglycemia Condition: Stable Prescriptions: New glyburide 5 mg tablet 5 mg PO DAILY Qty: 30 0RF metformin 500 mg tablet 500 mg PO BID Qty: 60 0RF azithromycin 250 mg tablet See Rx Instructions .ROUTE .COMPLEX Qty: 6 0RF Rx Instructions: For 250 mg dose pack: take 500 mg today (day 1), then 250 mg for 4 days (days 2-5) Discharge Orders: Discharge ED (Routine); Ordered 10/25/22 Ordered By: Clive Ramírez Discharge Diet: Regular Discharge Activity: Increase activity as tolerated Patient Instructions: Managing Diabetes During Sick Days (ED), Diabetic Hyperglycemia (ED), Diabetes and Exercise (ED) Activity Restrictions/Additional Instructions: Follow-up with medical provider as directed at your next scheduled appointment for further management of diabetes medications. Take medications as prescribed. Return to the ER or your medical provider if condition worsens. Please read and understand discharge instructions. Thank you for choosing [facility] for your healthcare needs today. Please realize this is an emergency room and that we are providing you with a medical screening exam and this may not be complete and all inclusive of all the testing and or work up that you may need to determine your ailment or severity of your illness. It is very important that you follow up as instructed or that you return to the Emergency Department should you have concerns or if your condition changes or worsens in any way. Coding Level of Care Code ED Medical Claims Analyst for Millicent Montanez Exam Comprehensive
[2022-10-25 01:17] LABS: Basophils # 0.1 10^3/uL (0.0-0.1); Eosinophils # 0.1 10^3/uL (0.0-0.8); Eosinophils % 0.9 %; Hematocrit 48.4 % (42.0-52.0); Hemoglobin 16.7 g/dL (11.7-16.6); Lymphocytes % 10.6 %; Mean Corpuscular HGB Conc 34.5 g/dL (30.0-36.0); Mean Corpuscular Hemoglobin 31.2 pg (28.0-34.0); Mean Corpuscular Volume 90.5 fl (80-94); Mean Platelet Volume 9.9 fL (7.4-10.4); Monocytes % 10.5 %; Neutrophils # 7.18 10^3/uL (1.8-7.7); Neutrophils % 76.7 %; Nucleated Red Blood Cells % 0 %; Platelet Count 213 10^3/cmm (130-400); Red Blood Count 5.35 10^6/uL (4.1-5.3); Red Cell Distribution Width 12.7 % (12.1-15.1); White Blood Count 9.4 10^3/uL (4.0-10.0)
[2022-10-25] MEDS: sodium chloride 0.9% 1,000 ML 999 ML IV (01:21)
[2022-10-25] MEDS: insulin regular-human 100 units/1 mL 10 UNIT IVP (01:22)
[2022-10-25 01:35] LABS: Alanine Aminotransferase 39 U/L (0-41); Albumin Level 3.8 g/dL (3.5-5.2); Alkaline Phosphatase 137 U/L (40-130); Blood Urea Nitrogen 13 mg/dL (6-20); Carbon Dioxide 25 mmol/L (22-29); Chloride 93 mmol/L (98-107); Globulin 2.9 g/dL (1.3-4.6); Glomerular Filtration Rate 104.1 mL/min (90-130); Lipase 39 U/L (13-60); Osmolality Calculated 287 mOsm/kg (285-295); Sodium 127 mmol/L (136-145); Total Bilirubin 1.4 mg/dL (0.15-1.2); Total Protein 6.7 g/dL (6.6-8.7)
[2022-10-25 01:42] LABS: Add Urine Microscopic? NO; Charge for UA Resulting for Rev
[2022-10-25 02:06] LABS: Anion Gap 13.1 (5-19); Aspartate Amino Transferase 23 U/L (0-40); Potassium 4.1 mmol/L (3.5-5.1)
[2022-10-25 02:07] LABS: Glucose 508 mg/dL (65-115)
[2022-10-25 02:09] LABS: Ketone (Acetest) Serum Negative (Negative)
[2022-10-25 02:09] LABS: Glucose Point of Care 344 mg/dL (70-110)
[2022-10-25 02:10] LABS: Bilirubin Urine Neg (Negative); Blood Urine Neg (Negative); Glucose Urine UA 4+ (Normal); Ketones Urine 1+ (Negative); Leukocyte Esterase Urine Negative (Negative); Nitrate Urine Negative (Negative); Protein Urine Neg (Negative); Urine Appearance Clear (CLEAR); Urine Color Yellow (Yellow); Urobilinogen Urine Neg (Negative); pH Urine 5 (5-7)
[2022-10-25] MEDS: ketorolac 30 mg/mL INJ IVP (02:34)
[2022-10-25] MEDS: sodium chloride 0.9% 500 ML 999 ML IV (02:36)
[2022-10-25] MEDS: insulin regular-human 100 units/1 mL 5 UNIT IVP (02:37)
[2022-10-25 03:13] LABS: Glucose Point of Care 377 mg/dL (70-110)
[2022-10-25] MEDS: insulin regular-human 100 units/1 mL 8 UNIT IVP (03:30)
--- NOTE | 2022-10-25 04:06 | PC.NURSE ---
Accucheck 298
[2022-10-25 04:07] LABS: Glucose Point of Care 298 mg/dL (70-110)
[2022-10-25 04:15] VITALS: BP 147/92; PULSE 82; RESP 20; O2SAT 93
== END 2022-10-25 04:17 | disposition home or self-care (01) ==
PROVIDERS: Emergency Provider Physician Assistant
DX: E11.65 Type 2 diabetes mellitus with hyperglycemia (principal); B34.9 Viral infection, unspecified
CPT/HCPCS: 36416; 80053; 81003; 82009; 82962; 83690; 85025; 96361; 96374; 96375; 96376; 99284; J1815; J1885; J7030; J7040